=== PATIENT | male | born 1985 | race African-American/Black ===

== ENCOUNTER 2024-04-22 17:01 | Emergency (ER) | payer SELFPAY ==
[~2024-04-22] VITALS: Ht 175.3 cm; Wt 100.0 kg
[2024-04-22 17:42] VITALS: RESP 18
== END 2024-04-22 17:53 | disposition home or self-care (01) ==
LOC: ER 17:02
DX: Z02.89 Encounter for other administrative examinations (principal); R45.1 Restlessness and agitation
CPT/HCPCS: 99283